=== PATIENT | male | born 1995 | race Caucasian/White ===

== ENCOUNTER 2018-11-22 21:37 | Emergency (ER) | payer OTHER ==
--- NOTE | 2018-11-22 21:46 | EDM.PDOC ---
ED HPI GENERAL MEDICAL PROBLEM - General Stated Complaint: FISH HOOK LEFT THUMB Time Seen by Provider: 11/22/18 21:42 Source of Information: Reports: Patient History Limitations: Reports: No Limitations - History of Present Illness INITIAL COMMENTS - FREE TEXT/NARRATIVE: fish hook, left thumb, precinct captain needs tetanus no other concerns Onset: Today Location: Reports: Upper Extremity, Left Severity: Mild ED ROS GENERAL - Review of Systems Review Of Systems: ROS reveals no pertinent complaints other than HPI. ED EXAM, GENERAL - Physical Exam Exam: See Below Exam Limited By: No Limitations General Appearance: Alert, WD/WN, No Apparent Distress Head: Atraumatic, Normocephalic Neck: Normal Inspection, Full Range of Motion Respiratory/Chest: No Respiratory Distress, Lungs Clear Cardiovascular: Regular Rate, Rhythm Peripheral Pulses: 4+: Radial (L) Extremities: Normal Range of Motion, Normal Capillary Refill, Other (fish hook, left hand, thumb, distal tip) Neurological: Alert, Oriented Psychiatric: Normal Affect Skin Exam: Warm, Dry Course - Vital Signs Last Recorded V/S: Last Vital Signs Temp 97.6 F 11/22/18 21:50 Pulse 109 H 11/22/18 21:50 Resp 14 11/22/18 21:50 BP 163/94 H 11/22/18 21:50 Pulse Ox 96 11/22/18 21:50 - Orders/Labs/Meds Orders: Active Orders 24 hr Category Date Time Status Vaccines to be Administered [RC] PER UNIT ROUTINE Care 11/22/18 21:59 Ordered Diphth,Pertuss(Acell),Tet Vac [Adacel] Med 11/22/18 21:59 Once 0.5 ml IM .ONCE ONE - Re-Assessments/Exams Free Text/Narrative Re-Assessment/Exam: 11/22/18 22:01 Using cryo, was able to remove the fishhook without difficulty Area was cleansed and bandage applied. Departure - Departure Time of Disposition: 22:02 Disposition: Home, Self-Care 01 Condition: Good Clinical Impression: Fish hook injury of finger, Foreign body - Discharge Information *PRESCRIPTION DRUG MONITORING PROGRAM REVIEWED*: Not Applicable *COPY OF PRESCRIPTION DRUG MONITORING REPORT IN PATIENT SHELLY: Not Applicable Referrals: PCP,None [Primary Care Provider] - Additional Instructions: Keep site clean and dry Watch for signs of infection. Return with concerns Call with questions. - Problem List & Annotations (1) Fish hook injury of finger SNOMED Code(s): 83900433 Code(s): S69.90XA - UNSP INJURY OF UNSP WRIST, HAND AND FINGER(S), INIT ENCNTR Status: Acute Priority: Low Current Visit: Yes Qualifiers: Encounter type: initial encounter Laterality: left Qualified Code(s): S69.92XA - Unspecified injury of left wrist, hand and finger(s), initial encounter - My Orders Last 24 Hours: My Active Orders 11/22/18 21:59 Vaccines to be Administered [RC] PER UNIT ROUTINE Diphth,Pertuss(Acell),Tet Vac [Adacel] 0.5 ml IM .ONCE ONE - Assessment/Plan Last 24 Hours: My Active Orders 11/22/18 21:59 Vaccines to be Administered [RC] PER UNIT ROUTINE Diphth,Pertuss(Acell),Tet Vac [Adacel] 0.5 ml IM .ONCE ONE
[2018-11-22] MEDS ORDERED: Diphtheria,Pertussis(Acell),Tetanus Vaccine 0.5 ML SDV IM ONE (21:59)
== END 2018-11-22 22:25 | disposition home or self-care (01) ==
LOC: JP.ED 21:37
DX: S60.352A Superficial foreign body of left thumb, initial encounter (principal); Z23 Encounter for immunization; W45.8XXA Other foreign body or object entering through skin, initial encounter
CPT/HCPCS: 90471; 90715; 99283